=== PATIENT | male | born 2000 | race Two or more races ===

== ENCOUNTER 2021-07-01 18:00 | Emergency (ER) | payer SELFPAY ==
[~2021-07-01] VITALS: Ht 177.8 cm; Wt 95.4 kg
[2021-07-01 19:22] VITALS: BP 175/104
[2021-07-01] MEDS ORDERED: LIDOCAINE 1% Multi-Dose 20 ML VIAL. INJ ONE (19:30)
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
== END 2021-07-01 21:25 | disposition home or self-care (01) ==
LOC: ER 18:00
DX: S01.01XA Laceration without foreign body of scalp, initial encounter (principal); S01.81XA Laceration without foreign body of other part of head, initial encounter; W22.8XXA Striking against or struck by other objects, initial encounter; Y93.89 Activity, other specified; Y92.89 Other specified places as the place of occurrence of the external cause; Y99.8 Other external cause status
CPT/HCPCS: 12002; 70450; 72125; 99284; J3490